=== PATIENT | female | born 1980 | race Caucasian/White ===

== ENCOUNTER → 2024-01-08 06:39 | Day surgery (SDC) | payer OTHER, SELFPAY | LOC: GI 06:39 | PROVIDERS: ATTENDING PHYSICIAN Internal Medicine Gastroenterology | DX: Z12.11 Encounter for screening for malignant neoplasm of colon (principal); Z83.719 Family history of colon polyps, unspecified; K64.8 Other hemorrhoids; D12.2 Benign neoplasm of ascending colon | CPT/HCPCS: 45380; 88305 ==

== ENCOUNTER → 2024-01-24 08:00 | Outpatient (REF) | payer OTHER, SELFPAY | LOC: HWWDC 08:00 | PROVIDERS: ATTENDING PHYSICIAN Obstetrics & Gynecology; FAMILY PHYSICIAN Internal Medicine | DX: Z12.31 Encounter for screening mammogram for malignant neoplasm of breast (principal) | CPT/HCPCS: 77063; 77067 ==

== ENCOUNTER → 2025-01-25 08:38 | Outpatient (REF) | payer OTHER, SELFPAY | LOC: HWWDC 08:38 | PROVIDERS: ATTENDING PHYSICIAN Internal Medicine | DX: Z12.31 Encounter for screening mammogram for malignant neoplasm of breast (principal) | CPT/HCPCS: 77063; 77067 ==